=== PATIENT | male | born 1990 | race African-American/Black ===

== ENCOUNTER 2024-05-28 13:41 | Emergency (ER) | payer OTHER ==
[~2024-05-28] VITALS: Ht 188 cm; Wt 81.0 kg
[2024-05-28 13:58] VITALS: BP 124/67; PULSE 60; RESP 18; TEMP 98.5; O2SAT 100
== END 2024-05-28 16:21 | disposition left against medical advice (07) ==
LOC: ER 13:50
DX: F41.9 Anxiety disorder, unspecified (principal); Z98.890 Other specified postprocedural states
CPT/HCPCS: 99281